=== PATIENT | male | born 1960 | race Caucasian/White ===

== ENCOUNTER 2017-07-18 18:24 | Emergency (ER) | payer BC ==
[~2017-07-18] VITALS: Ht 167.6 cm; Wt 85.7 kg
[2017-07-18] MEDS ORDERED: IBUPROFEN 800 MG TABLET PO (19:03)
[2017-07-18] MEDS ORDERED: HUMIRA 40 MG/0.8 ML IM (19:03)
[2017-07-18] MEDS ORDERED: predniSONE 20 MG TABLET PO ONE (20:15)
[2017-07-18] MEDS ORDERED: predniSONE 50 MG TABLET ONE (20:36)
[2017-07-18] MEDS ORDERED: predniSONE 10 MG TABLET ONE (20:36)
--- NOTE | 2017-07-18 20:56 | NUR ---
Patient discharged to home in stable conditon. Written and verbal after care instructions given. Patient verbalizes understanding of instructions.
[2017-07-18 20:57] VITALS: BP 150/90
== END 2017-07-18 20:57 | disposition home or self-care (01) ==
LOC: ER 18:25
DX: I88.9 Nonspecific lymphadenitis, unspecified (principal); L40.9 Psoriasis, unspecified
CPT/HCPCS: 71010; A4663; J7512

== ENCOUNTER 2019-01-19 11:17 | Emergency (ER) | payer BC ==
[~2019-01-19] VITALS: Ht 165.1 cm; Wt 86.2 kg
[~2019-01-19 11:17] MED LIST: HUMIRA 40 MG/0.8 ML IM; IBUPROFEN 800 MG TABLET PO
--- NOTE | 2019-01-19 11:56 | NUR ---
PT IS IN ROOM #2B. DR GUNTER RVALUATED THE PT.
--- NOTE | 2019-01-19 12:45 | NUR ---
PT WAS D/C'd TO HOME. D/C INSTRUCTIONS GIVEN TO THE PT.
[2019-01-19 12:46] VITALS: BP 139/71
== END 2019-01-19 12:47 | disposition home or self-care (01) ==
LOC: ER 11:18
DX: K64.9 Unspecified hemorrhoids (principal); Z79.1 Long term (current) use of non-steroidal anti-inflammatories (NSAID); Z79.899 Other long term (current) drug therapy
CPT/HCPCS: A4663

== ENCOUNTER 2019-08-18 12:51 | Emergency (ER) | payer SELFPAY | END 2019-08-18 13:09 | disposition left against medical advice (07) | LOC: ER 12:51 | DX: Z53.21 Procedure and treatment not carried out due to patient leaving prior to being seen by health care provider (principal) | CPT/HCPCS: A4663 ==

== ENCOUNTER 2019-09-14 08:36 | Emergency (ER) | payer BC ==
[~2019-09-14] VITALS: Ht 167.6 cm; Wt 85.7 kg
[2019-09-14] MEDS ORDERED: CEFTRIAXONE 1 G VIAL ONE (09:10)
[2019-09-14] MEDS ORDERED: IV NORMAL SALINE 1000 ML BAG IV ONE (09:15)
[2019-09-14] MEDS ORDERED: CEFTRIAXONE 2 G in IV DEXTROSE 5% 100 ML IV ONE (09:15)
--- NOTE | 2019-09-14 10:01 | NUR ---
IV removed. Catheter intact and site benign. Pressure and 4x4 gauze applied to site. No bleeding noted. Patient discharged to home in stable condition with brisk steady gait. Written and verbal after care instructions given to patient. Patient verbalized understanding & compliance of instructions.
[2019-09-14 10:03] VITALS: BP 126/81
== END 2019-09-14 10:03 | disposition home or self-care (01) ==
LOC: ER 08:36
DX: J06.9 Acute upper respiratory infection, unspecified (principal); Z79.899 Other long term (current) drug therapy; Z60.2 Problems related to living alone
CPT/HCPCS: 93005; 96365; 99284; J0696; A4663; J3490; J7030

== ENCOUNTER 2024-05-15 09:28 | Emergency (ER) | payer BC, OTHER ==
[~2024-05-15] VITALS: Ht 167.6 cm; Wt 88.5 kg
[~2024-05-15 09:28] MED LIST changes: +ACET-2154 PO; +AZIT250T13 PO; -IBUPROFEN 800 MG TABLET PO
[2024-05-15] MEDS ORDERED: LET TOPICAL SOLUTION 8 ML UDC ONE (10:09)
[2024-05-15] MEDS ORDERED: NEOMY/BACITRA/POLYMYXIN B OINT UD PACKET TP ONE (10:10)
[2024-05-15] MEDS ORDERED: KETOROLAC TROMETHAMINE 15 MG INJ ONE (10:10)
[2024-05-15] MEDS: NEOMY/BACITRA/POLYMYXIN B OINT UD PACKET TP ONE (10:11)
[2024-05-15] MEDS: KETOROLAC TROMETHAMINE 15 MG INJ IM ONE (10:11)
[2024-05-15] MEDS: LET TOPICAL SOLUTION 8 ML UDC TP ONE (10:11)
[2024-05-15] MEDS ORDERED: CLIN300C12 PO (10:36)
[2024-05-15] MEDS ORDERED: IBUP-1955 PO (10:36)
[2024-05-15] MEDS ORDERED: MUPI22OI2 TP (10:36)
[2024-05-15 10:46] VITALS: BP 137/78; O2SAT 99
== END 2024-05-15 10:55 | disposition home or self-care (01) ==
LOC: ER 09:28
DX: L60.0 Ingrowing nail (principal); Z60.2 Problems related to living alone
CPT/HCPCS: 99283; 96372; J1885; A4606; A4663